=== PATIENT | female | born 1985 | race Caucasian/White ===

== ENCOUNTER 2016-11-28 16:47 | Emergency (ER) | payer BC ==
--- NOTE | 2016-12-03 17:50 | ER ---
ADMIT: 11/28/2016 RM/LOC: ER [facility] MR#: [id number] ACC#: [id number] [facility] [address] [place], [place] [id number] TATE YANES CHERELLE COOPER [id number] Emergency Room Report SEX: F AGE: 31 : 1985 DATE: 11/28/2016 CHIEF COMPLAINT: Skin rash. HISTORY OF PRESENT ILLNESS: This is a 31-year-old female, who presents to the ED with 7 days of worsening rash on her face, upper extremities, chest, and back. States she was in [facility] last week when her clamp truck driver pulled over and gave them a cashew fruit. States she had the oil on her hands, got some on her body. She immediately washed her hands and noted some redness, awoke the next day with a red swollen face, blistering. She did get a steroid shot in [facility] prior to returning to the [facility]. Followed up with her primary care provider after returning, started her on a course of prednisone and Keflex. Describes the rash as itchy and burning. States she has no known food allergies. Does have an allergy to Augmentin. Primary did put her on Keflex. Denies any fever, chest pain, shortness of breath, throat swelling, eye redness, itching, abdominal pain, nausea, vomiting, or pain. COURSE IN THE EMERGENCY ROOM: The patient was seen and examined. She is afebrile and nontoxic. No acute distress. Skin is warm and dry. She does have a fine erythematous urticarial rash on her face, chest, abdomen, and back. There is no warmth or tenderness. No weeping. HEENT: Normocephalic and atraumatic. Pharynx, nonerythematous. No erythema or swelling. Trachea is midline. Lungs are clear to auscultation bilaterally. Heart is regular. Abdomen is soft and nontender. IMPRESSION: Urticaria likely reaction to cashew fruit exposure. DISPOSITION: The patient was started on an increased prednisone taper 60 mg p.o. daily for 3 days, 50 mg p.o. daily for 3 days, 40 mg p.o. daily for 3 days, 30 mg p.o. daily for 3 days, 20 mg p.o. daily for 3 days, and 10 mg p.o. daily for 3 days. I did also prescribe her triamcinolone topical 0.5% ointment to apply to the affected areas twice a day as needed. I did caution not to apply this to her face or genital. She is to use Benadryl [id number] at night. Zyrtec and Claritin during the day. Follow up with Dr. Padron if she is not improving. Questions sought and answered to the best of my ability and to the patient's satisfaction. Discharged in stable condition. SARTHAK Cunningham / Olman Andrews MD / lanie JOB #: [id number] CC: Olman Andrews MD, Attending Physician Dalton Padron MD, Family Physician
== END 2016-11-28 17:45 | disposition home or self-care (01) ==
LOC: ER 16:47
DX: L50.0 Allergic urticaria (principal); L29.9 Pruritus, unspecified; Z98.890 Other specified postprocedural states; Z88.1 Allergy status to other antibiotic agents; Z91.010 Allergy to peanuts